=== PATIENT | male | born 2000 | race Caucasian/White ===

== ENCOUNTER 2023-12-04 14:24 | Outpatient (AMB) | payer OTHER, SELFPAY ==
--- NOTE | 2023-12-04 14:35 | MHC.OFFVIS ---
Vital Signs 12/04/23 14:41 Height 6 ft Weight 262 lb 12.656 oz BMI 35.6 BP 100/62 Blood Pressure Location Lt brachial Position Sitting Pulse 70 Pulse Source Pulse Oximeter Intake Visit Reasons: hypo Intake Note: New patient present today for congenital hypothyroid. Cardiac Technologist Required: No Accompanied by: Self / Same As Patient Allergies No Known Allergies Allergy (Verified 12/04/23 14:43) Medication List - Last Reconciled 12/04/23 by Gagan Quiros MD levothyroxine 137 mcg PO DAILY HPI Comments Details: 23 YO M with PMHx [] who is seen in consultation at the request of his PCP for Hyothyroidism. Was seeing Dr. Mrucia First diagnosed with Hypothyroidism entire life Currently using generic levothyroxine 274 ug for 2 yrs . Tried Synthroid and [place] Denies +fatigue, -weight gain, -cold intolerance, -dry skin,- hair loss, -constipation. There is no hx of hyperlipidemia . Denies obstructive sx of goiter . Denies consuming any kelp or seaweed. Denies taking amiodarone. Biotin: No Family history of thyroid disease: No Labs: C/O loss of libido . Some problem with errectile maintainence [facility] Medical History (Updated 12/04/23 @ 14:39 by Gagan Quiros MD) Hypothyroidism Family History Mother No problems noted. Father No problems noted. Social History Alcohol intake: current Patient Tobacco Use Status: Never used Tobacco Physical Exam HEENT reveals absence of lid lag , stare or proptosis or eyebrow loss. Thyroid gland measure 15 gms . No nodules or tenderness palpated. There is no cervical adenopathy palpated. Lungs CTA. Heart S1, S2 Reg R/R -M/R/G. Abdominal exam benign. Skin exam reveals absence of dryness or thyroid dermopathy or vitiligo. Nail exam reveals absence of thyroid acropachy or oncholysis. Neurologic exam reveals 2+ reflexes . Muscle Strength is 5/5 proximally. There are no tremors in upper extremities. Assessment & Plan Assessment & Plan (1) Hypothyroidism: Code(s): E03.9 - Hypothyroidism, unspecified Category: Medical Plan: This is a 23-year-old white male with a history of hypothyroidism being treated with 274 mcg of generic levothyroxine. He appears to be clinically euthyroid. Lab tests show a testosterone level in the 300s and a. cortisol of 5 both perform mid afternoon. He is complaining of fatigue but recently had a TSH checked that was normal with elevated free T4 Plan is to change to generic levothyroxine to branded Tirosint and recheck TSH and free T4 along with anti-peroxidase antibodies in 6 weeks. Will also recheck a.m. cortisol as well as testosterone fasting in 4 weeks. Will obtain previous office visit notes from Dr. Murcia at [facility] endocrine. Orders: Orders Free T4 (Free Thyroxine) 4 Weeks E03.9 - Hypothyroidism, unspecified Thyroid Stimulating Hormone 4 Weeks E03.9 - Hypothyroidism, unspecified Thyroid Peroxidase Antibodies 4 Weeks E03.9 - Hypothyroidism, unspecified Cortisol Random 4 Weeks E03.9 - Hypothyroidism, unspecified Testosterone, Free/Total 4 Weeks E03.9 - Hypothyroidism, unspecified Medications: New Tirosint (levothyroxine) 274 mcg (2 x 137 mcg) PO DAILY 60 caps 5RF NS Coding Level of Care Code New Pt Level 4 (84894) Diagnoses Hypothyroidism E03.
[2023-12-04 14:41] VITALS: BP 100/62; PULSE 70; BMI 35.6
== END 2023-12-04 15:24 | disposition home or self-care (01) ==
PROVIDERS: PCP Family Medicine; Visit Provider Internal Medicine Endocrinology, Diabetes & Metabolism
DX: E03.9 Hypothyroidism, unspecified (principal)
CPT/HCPCS: 99204

== ENCOUNTER → 2023-12-04 14:24 | Outpatient (BNVA) | payer OTHER, SELFPAY | PROVIDERS: PCP Family Medicine; Visit Provider Internal Medicine Endocrinology, Diabetes & Metabolism ==

== ENCOUNTER 2024-01-01 07:40 | Outpatient (REF) | payer OTHER, SELFPAY ==
[2024-01-01 09:20] LABS: Cortisol Random 8.2 ug/dL; Free T4 (Free Thyroxine) 1.51 ng/dL (0.71-1.85); Thyroid Stimulating Hormone 0.68 uIU/mL (0.32-4.0)
[2024-01-02 11:07] LABS: Thyroid Peroxidase Antibodies 3 IU/mL (<9)
[2024-01-05 20:54] LABS: Testosterone, Free 92.7 pg/mL (35.0-155.0); Testosterone, Total 648 ng/dL (250-1100)
== END 2024-01-01 07:41 | disposition home or self-care (01) ==
LOC: HO.LAB 07:40
PROVIDERS: PCP Family Medicine; Visit Provider Internal Medicine Endocrinology, Diabetes & Metabolism
DX: E03.9 Hypothyroidism, unspecified (principal)
CPT/HCPCS: 36415; 82533; 84402; 84403; 84439; 84443; 86376

== ENCOUNTER 2024-01-05 08:06 | Outpatient (RCR) | payer OTHER, SELFPAY ==
[2024-01-05 08:12] VITALS: BP 131/90; PULSE 83; RESP 20; TEMP 37.2; O2SAT 98
[2024-01-05] MEDS: Cosyntropin 0.25 MG VIAL IVPUSH (08:30)
[2024-01-05 08:40] VITALS: BP 136/84; PULSE 83
--- NOTE | 2024-01-05 09:25 | HO.INF ---
PHLEBOTOMY CALLED FOR 60MIN DRAW
--- NOTE | 2024-01-05 09:34 | HO.INF ---
phleb at bedside
[2024-01-06 10:03] LABS: Cortisol 60 Minute 30.2 mcg/dL; Cortisol Baseline 14.9 mcg/dL; Cortisol Baseline Time 1 BASELINE
== END 2024-01-05 13:02 | disposition home or self-care (01) ==
LOC: HO.INF 08:06
PROVIDERS: Visit Provider Internal Medicine Endocrinology, Diabetes & Metabolism
DX: R79.89 Other specified abnormal findings of blood chemistry (principal)
CPT/HCPCS: 36415; 82533; 96374; J0834

== ENCOUNTER 2024-02-01 14:27 | Outpatient (AMB) | payer OTHER, SELFPAY ==
[2024-02-01 14:29] VITALS: BP 124/64; PULSE 98; BMI 36.8
--- NOTE | 2024-02-01 14:29 | MHC.OFFVIS ---
Vital Signs 02/01/24 14:29 Height 6 ft Weight 271 lb 9.752 oz BMI 36.8 BP 124/64 Blood Pressure Location Lt brachial Position Sitting Pulse 98 Pulse Source Pulse Oximeter Intake Visit Reasons: hypothyroidism/LVM Intake Note: Patient present today for hypothyroidism follow up visit. 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 Was seeing Dr. Murcia First diagnosed with Hypothyroidism entire life Currently using generic levothyroxine 274 ug for 2 yrs . Tried Synthroid and [place] Denies +fatigue, -weight gain, -cold intolerance, -dry skin,- hair loss, -constipation. There is no hx of hyperlipidemia . Denies obstructive sx of goiter . Denies consuming any kelp or seaweed. Denies taking amiodarone. Biotin: No Family history of thyroid disease: No Labs: C/O loss of libido . Some problem with errectile maintainence [facility] Medical History (Updated 12/04/23 @ 14:39 by Gagan Quiros MD) Hypothyroidism Family History Mother No problems noted. Father No problems noted. Social History Alcohol intake: current Patient Tobacco Use Status: Never used Tobacco Physical Exam Vital Signs: Last Vital Signs Pulse 98 02/01/24 14:29 BP 124/64 02/01/24 14:29 BMI result Body Mass Index 36.8 HEENT reveals absence of lid lag , stare or proptosis or eyebrow loss. Thyroid gland measure 15 gms . No nodules or tenderness palpated. There is no cervical adenopathy palpated. Lungs CTA. Heart S1, S2 Reg R/R -M/R/G. Abdominal exam benign. Skin exam reveals absence of dryness or thyroid dermopathy or vitiligo. Nail exam reveals absence of thyroid acropachy or oncholysis. Neurologic exam reveals 2+ reflexes . Muscle Strength is 5/5 proximally. There are no tremors in upper extremities. Assessment & Plan Assessment & Plan (1) Hypothyroidism: Code(s): E03.9 - Hypothyroidism, unspecified Category: Medical Plan: This is a 23-year-old white male with a history of hypothyroidism being treated with 274 mcg of gTirosint He appears to be clinically and biochemically euthyroid. He had normal testosterone and normal Cortrosyn stim test Plan is to continue the current management. At this point, patient returned to the care of his primary care provider returned back to endocrinology as needed Coding Level of Care Code Est Pt Level 3 (92796) Diagnoses Hypothyroidism E03.9
== END 2024-02-01 15:08 | disposition home or self-care (01) ==
PROVIDERS: PCP Family Medicine; Visit Provider Internal Medicine Endocrinology, Diabetes & Metabolism
DX: E03.9 Hypothyroidism, unspecified (principal)
CPT/HCPCS: 99213

== ENCOUNTER → 2024-02-01 14:27 | Outpatient (BNVA) | payer OTHER, SELFPAY | PROVIDERS: PCP Family Medicine; Visit Provider Internal Medicine Endocrinology, Diabetes & Metabolism ==

== ENCOUNTER 2024-07-02 10:18 | Outpatient (AMB) | payer OTHER, SELFPAY ==
[2024-07-02 10:20] VITALS: BP 122/80; PULSE 64; O2SAT 98; BMI 35.9
--- NOTE | 2024-07-02 10:20 | A.OFFVIS_ITS ---
Vital Signs 07/02/24 10:20 Height 6 ft Weight 264 lb 8.875 oz BMI 35.9 BP 122/80 Blood Pressure Location Rt brachial Position Sitting Pulse 64 Pulse Source Pulse Oximeter Pulse Oximetry (%) 98 Oxygen Delivery Method Room Air Intake Visit Reasons: Hypothyroidism Intake Note: Patient present today for hypothyroidism follow up visit. Temperature Regulator Required: No Accompanied by: Self / Same As Patient Allergies No Known Allergies Allergy (Verified 07/02/24 10:21) Medication List - Last Reconciled 07/02/24 by Juliane Guevara MD Tirosint (levothyroxine) 274 mcg (2 x 137 mcg) PO DAILY NS HPI Comments Details: 23 YO M with PMHx who is seen in for follow up for Hyothyroidism. First diagnosed with Hypothyroidism: at . Born with congential hypothyroi dism. Currently using Tirosint 274 ug . Apparently levothyroxine was tried and was not working for him, concern for absorption issues. Had inadequate response and ongoing fatigue with generic and also Tried Synthroid and [place] . Denies -fatigue, -weight gain, -cold intolerance, -dry skin,- hair loss, - constipation. . Denies obstructive sx of goiter . Denies consuming any kelp or seaweed. Denies taking amiodarone. Biotin: No Family history of thyroid disease: No No smoking Works at [employer] Physical exam General: sitting comfortably in no acute distress HEENT: normocephalic/atraumatic Neck: supple, symmetrical Cardiac: normal heart sounds Pulm: normal breath sounds B/L, no added breath sounds Abd: not distended, no tenderness Extremities: no edema, no signs of myxedema Labs: Laboratory Tests 01/01/24 07:53 TSH 0.68 Free T4 1.51 [facility] Medical History (Updated 07/02/24 @ 10:49 by Julinae Guevara MD) Hypothyroidism Surgical History (Updated 07/02/24 @ 10:23 by ALLA Mcghee) History of testicular surgery Family History Mother No problems noted. Father No problems noted. Social History Alcohol intake: current Patient Tobacco Use Status: Never used Tobacco Physical Exam Vital Signs: Last Vital Signs Pulse 64 07/02/24 10:20 BP 122/80 07/02/24 10:20 Pulse Ox 98 07/02/24 10:20 Oxygen Delivery Method Room Air 07/02/24 10:20 BMI result Body Mass Index 35.9 Assessment & Plan Assessment & Plan (1) Hypothyroidism: Code(s): E03.9 - Hypothyroidism, unspecified Category: Medical Qualifiers: Hypothyroidism type: congenital without goiter Qualified Code(s): E03.1 - Congenital hypothyroidism without goiter Plan: 23-year-old male with congenital hypothyroidism currently on Tirosint 274 mcg daily, apparently was switched to Tirosint because he was having ongoing fatigue and inadequate response to generic levothyroxine, with much improvement in symptoms on Tirosint. Labs last from December 2023 showed normal thyroid function. We will repeat labs now. He is clinically euthyroid. Plan: -ordered TSH, free T4 to be done now -continue Tirosint 274 mcg daily -follow up in 1 year Plan See above Orders: Orders Free T4 (Free Thyroxine) Today E03.9 - Hypothyroidism, unspecified Thyroid Stimulating Hormone Today E03.9 - Hypothyroidism, unspecified Patient Instructions: Continue Tirosint as it is Do blood work today We will message you with results on the portal Coding Level of Care Code Est Pt Level 3 (37111) Diagnoses Congenital hypothyroidism without goiter E03.1 Hypothyroidism type: congenital without goiter
--- OUTSIDE RECORDS SUMMARY | 2024-07-02 11:54 | XMS_ITS | Encounter Summary ---
Author Organization [facility] Address [address] [place] [id number] Phone Care Team Providers Care Parimutuel Cashier Name Role Phone Igor Holland MD Primary Care Provider [phone] Encounter Details Date Type Department Care Team (Late st Contact Info) Description 11/03/2010 Conversion Encounter [address] [place] [address] Social History Tobacco Use Types Packs/Day Years Used Date Smoking Tobacco: Never Assessed Sex and Gender Information Value Date Recorded Sex Assigned at Not on file Legal Sex Male 6:23 PM EDT Gender Identity Not on file Sexual Orientation Not on file documented as of this encounter Plan of Treatment Not on file documented as of this encounter Visit Diagnoses Not on filedocumented in this encounter Care Teams Parimutuel Cashier Relationship Specialty Start Date End Date Igor Holland MD [address] [place] [address] [place] [id number] PCP - General 08/23/17 documented as of this encounter
--- OUTSIDE RECORDS SUMMARY | 2024-07-02 11:54 | XMS_ITS | Data Portability ---
Author Organization [facility] Address [address] [place] [address] Assessment Encounter Date Assessment Date Assessment LastModified by Organization Details LastModified Time 05/30/2018 05/30/2018 Xrays of foot show a possible fracture of his lateral cuneiform. 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 Patient was put in a boot for stability and pain relief. Patient states that he does not have a team physician so he will follow up with Dr. Perez after CT. [email or web address] Not available 05/30/2018 19:47:03 06/29/2018 06/29/2018 She returns to clinic today for recheck of his right ankle. 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 Seems to be coming along quite nicely. We will continue therapeutic exercise with the maintenance trainer for another month or so. He understands the high risk of recurrent injury. The rigid brace and taping also need to be in place for at least 6 months with athletic activity. I am glad to see him back on a when necessary basis. [email or web address] Not available 06/29/2018 17:23:26 Plan of Treatment Reminders Order Date Submit Date Provider Last Modified By Organization Details Last Modified Time Details Appointments None recorded. Lab None recorded. Referral None recorded. Procedures None recorded. Surgeries None recorded. Imaging CT, foot, w/o contrast - include ankle joint, R/O fracture cuneiform bone and injury of posterior tibialis tendon 2018 019 [email or web address] [facility] (Imaging), [address], [place], [address], 9 13:58:48 XR, foot 2018 019 [email or web address] In-House Results, For Internal Use Only, Do Not Delete/merge, [id number] 9 12:11:27 Medication Orders None recorded. Patient TargetsNo targets recorded. Patient Instructions Encounter Date Encounter Id Patient Instructions Last Modified By Organization Details Last Modified Time 05/30/2018 [id number] note to return t o work/school [facility] Not available 05/31/2018 12:11:27 06/06/2018 [id number] note to return t o work/school [facility] Not available 06/06/2018 19:58:09 Reason for Referral None Reported. Results Created Date Observation Date Name Description Value Unit Range Abnormal Flag Note LastModifiedBy Organization Detail LastModifiedTime Result Notes None recorded. Problems Name Problem SNOMED Code Status Onset Date Resolution Date Notes Provider Name and Address Organization Details Recorded Time Foot pain 19191024 Active 019 Jyothi pagan [facility] 05/30/2018 19:10:36 Ankle pain 123393107 Active 019 Jyothi pagan [facility] 05/30/2018 19:10:45 Problem Notes None recorded. Procedures Surgical History Date Name Laterality Status Provider Name and Address Organization Details Recorded Time 2 Testicular imaging w/flow completed Jyothi Temple [facility] 05/30/2018 18:21:58 Imaging Results None recorded. Procedure Notes None recorded. Medical Equipment None Reported. Allergies No known drug allergies Medications Name Sig Start Date Stop Date Status Note LastModified by Organization Details LastModified Time paroxetine 10 mg tablet active Not Available Not Available No t Available ibuprofen 800 mg tablet active Not Available Not Available No t Available amoxicillin 875 mg tablet 06/29 completed Not Available Not Available Not Available mupirocin 2 % topical ointment active Not Available Not Available Not Available Synthroid 112 mcg tablet Take 1 tablet every day by oral route. active Not Available Not Available No t Available neomycin-poly myxin-hydroco rt 3.5 mg-10,000 unit/mL-1 % ear drops,susp active Not Available Not Available N ot Available cyclobenzapri ne 5 mg tablet active Not Available Not Available Not Available Paxil 5mg active Not Available Not Availa ble Not Available Vitals Date Recorded Body height Body mass index (BMI) Body mass index (BMI) Percentile per age and sex Body weight Heart rate Systolic blood pressure Diastolic blood pressure Provider Name and Address Organization Details Last Updated DateTime 9 185.42 cm 33 kg/m2 98 % 679811. 09 g 78 /min 124 mm[Hg] 80 mm[Hg] Jyothi Temple [facility] 9 18:19:14 Date Recorded Body height Provider Name an d Address Organization Details Last Updated DateTime 06/06/2018 185.42 cm Anushka Tanner [facility] 06/06/2018 15:33:26 Date Recorded Body height Provider Name an d Address Organization Details Last Updated DateTime 06/29/2018 185.42 cm ALEKSANDR KUMAR [facility] 06/29/2018 08:48:34 Social History Question Answer Notes LastModified by [employer] ion Details LastModified Time Tobacco Smoking Status Never Smoker [facility] 05/30/2018 18:20:53 Do You Have An Advance Directive? No [email or web address] Information not available 06/29/2018 What Is Your Level Of Alcohol Consumption? None [email or web address] Information not available 06/29/2018 Auto Related Injury? No Information not available 06/29/2018 What Is Your Level Of Caffeine Consumption? Occasional [email or web address] Information not available 06/29/2018 How Much Tobacco Do You Chew? None [email or web address] Information not available 06/29/2018 Which Of Your Hands Is Dominant? Right [email or web address] Information not available 06/29/2018 Live Alone Or With Others? Alone [email or web address] Information not available 06/29/2018 Ambulatory Status Ambulates W/o Assistance Information not available 06/29/2018 Illicit Drugs No [email or web address] Information not available 06/29/2018 Marital Status Single Informatio n not available 06/29/2018 What Was The Date Of Your Most Recent Tobacco Screening? 06/29/2018 Information not available 11/08/2018 How Much Tobacco Do You Smoke? No [email or web address] Information not available 06/29/2018 Work Related Injury? No [email or web address] Information not available 06/29/2018 Sex: Unknown Functional Status Question Answer Note LastModified by Organization D etails LastModified Time What is your exercise level? Heavy [email or web address] Information not available 06/29/2018 Mental Status None recorded. Family History Nothing Reported. Medical History Condition Response Pancreatitis N HIV or AIDS N Coronary Artery Disease N Gout N High Blood Pressure N Diarrhea N Kidney Stones N Irregular Heartbeat N Hernia N Head Trauma/Injury N Emphysema N Lung Disease N Glaucoma N Depression N COPD N Blood Clots N Thyroid Y Pacemaker N Sleep Apea N Repeated Fevers N Anxiety Disorder Y Muscle, Joint, or Bone Problems N Arthritis N Serious Illness or Injuries N Congenital Anomalies N Cancer N Stroke N Neck Injury N Leg or Foot Ulcers N Bladder or Kidney Problems N Shortness of Breath N Rashes N High Cholesterol N Neurologic Disorder N Liver Disease N Organ Transplant N Rheumatoid Arthritis N Fibromyalgia N Hives or other skin conditions N Kidney Disease N Prostate N Heart Problems N Weight Loss N Osteoarthritis N Coagulation Disorder N Balance Problems N Arrhythimia N Stroke TIA N Gallstones N Carpel Tunnel N Anemia N Ulcers N Heart Attack (NE) N Diabetes N Mental Health N Bleeding Disorder N Seizures/Epilepsy N Urinary burning, pain or frequency N Skin problems N Headaches or Migraines N Eczema N Diverticulitis N Asthma N Allergies N Sinus Problems N Peripheral Vascular Disease N Blackouts N Numbness/Tingling N Easy Bruising N GERD/Reflux N Hepatitis N Neuropathy N Heart Disease N Pulmonary Embolism N Hypertension N Osteoporosis N Past Encounters Encounter ID Performer Location Encounter Start Date Encounter Closed Date Diagnosis/Indication Diagnosis SNOMED-CT Code Diagnosis ICD10 Code Diagnosis Note [id number] [facility] [address] [place] [address] 05/30/2018 17:56:02 05/30/2018 19:11:35 Foot pain 07040912 M79.671 Ankle pain 092938592 M25 .055 [id number] [place] Perez MD [facility] [address] [place] [address] 06/06/2018 15:28:59 06/06/2018 15:57:16 Sprain of ankle 41290781 S93.421D Patient comes to clinic today for evaluation of his right ankle as a referral from the walk-in clinic. He has grade 2 sprain with some involvemen t of the deltoid ligament. Suggest continuati on of the boot with trial of play in 2 weeks. I will see him back at that time for evaluation . He has a rigid brace he may use it I believe this is the velocity brace based on his descriptio n. Anti-infla mmatories rest ice and physical therapy modalities with his maintenance trainer.CT scan reviewed showing no acute fracture. Minor avulsions from previous injuries likely. [id number] [place] Perez MD [facility] [address] [place] [address] 06/29/2018 08:44:31 06/29/2018 09:17:27 Sprain of ankle 50003296 S93.421D Health Concerns Section Related Observation LastModified by Organization Detai ls LastModified Time None Recorded Concern Status LastModified by Organization Details LastModified Time None Recorded Advance Directives Directive N: Payers Encounter Date Sequence Insurance Name Policy Number Policy Valdez Covered Member ID Valdez Member ID Guarantor Name 05/30/2018 1 [place] [id number] Humza Granados [place] [id number] Dylan D Kaleb 06/06/2018 1 [place]) [id number] Humza Roberta [place] [id number] Dylan D [place] 06/29/2018 1 [place] [id number] Humza Roberta [place] [id number] Dylan D [place] Notes Date Note Type Note Provider Name and Address Organization Details Recorded Time 05/30/2018 text/html 17 y/o male come s to the clinic tonight concerning his right ankle. He states that he was playing volleyball and went up to strike volleyball when another players foot got under his and he came down on the other players foot turning his ankle. 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 He states that he has talked to his maintenance trainer. Patient states that he was put on crutches for 3 days until he was able to ambulate, but was still having pain and swelling so he went to get xrays at urgent care last night. He states that he has been playing with a sprained ankle for four games with an ankle brace on. Patient states that he has tried ice and ibuprofen that has helped with the pain some but he still has pain with walking and still has swelling. Patient states that he does have pain in his midfoot with pressure applied/walking. He that he does have a little numbness right around his distal metatarsals, but the numbness has gotten better. [facility] [facility],[address], [place], [address], [facility] 05/30/2018 19:50:08 06/06/2018 text/html This patient com es to clinic today for recheck of his right foot. He was seen at the walk-in clinic for a twisting injury suffered. 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 He states using the walking boot the pain is a little bit better. It is at the medial and lateral aspect of the ankle. He suffered multiple sprains in the past nothing quite this series. He has ordered a rigid splint which seems to help when he tries to play but currently the pain is too unbearable. Rates is moderate with associated swelling. There is no numbness tingling or mechanical complaints. Anti-inflammatories seem to help. [place] Perez MD [address] [facility],[address], [place], [address], [facility] 06/06/2018 20:35:26 06/29/2018 text/html Patient states t hat he has been able to weight-bear without the walking boot with no significant discomfort and has done some white athletic training. He has been taping the ankle and wearing a semirigid brace. He notes no other mechanical complaints and states the swelling is improving. He is also working with his maintenance trainer for modalities and proprioception training. Washington Perez MD [address] [facility],[address], [place], [address], [facility] 06/29/2018 17:23:32
--- OUTSIDE RECORDS SUMMARY | 2024-07-02 11:54 | XMS_ITS | Clinical Summary ---
Author Organization [facility] Address [address] [place] [id number] Phone Care Team Providers Care Adobe Flex Developer Name Role Phone Igor Holland MD Primary Care Provider [phone] Allergies No known active allergies Medications amoxicillin 875 MG tablet TK 1 T PO BID X 10 DAYS 0 8 Active levothyroxine 125 MCG tabletIndications:C ongenital hypothyroidism Take 2 tablets (250 mcg total) by mouth daily. 60 tablet 3 Active Active Problems Problem Noted Date Diagnosed Date Ankle pain 05/30/2018 Pure hypercholesterolemia 11/11/2014 Overview (11/08/2017): Hypercholesterolemia (272.0) Onset: 11/11/2014 Added by: Brennen Juarez Assessment & Plan (11/08/2017 1:00 PM EDT): Noted to have elevation of non-HDL cholesterol. Discussed dietary recommendations. Overweight 11/04/2014 Overview (11/08/2017): Overweight (278.02) Onset: 11/04/2014 Added by: Brennen Juarez Assessment & Plan (11/08/2017 1:01 PM EDT): BMI over 25 and more so over 30 places patient at increased risk for development of diabetes, cardiovascular disease and kidney disease. Discussed these things in this visit. Discussed importance of being active. Previously screened for cholesterol, diabetes and elevated liver transaminases. Generalized anxiety disorder 10/08/2013 Overview (11/08/2017): Anxiety, generalized (300.02) Onset: 10/08/2013 Added by: Brennen Juarez Assessment & Plan (11/08/2017 12:36 PM EDT): Doing well with paxil for anxiety. This has been working well for him. 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 Normal thyroid labs, continue on current synthroid dose (250mcg daily). 12/24/2018 - Mitch Byrd MD, [facility]. Follow up in 1 yr for hypothyroidism. Assessment & Plan (11/08/2017 12:59 PM EDT): Followed by [facility] Immunizations Immunization Administration Dates Next Due DTaP 5 12/10/2002, 1,02/22/1999,12/16 Hep B, ped/adol 07/12/2002,02/22/1999,1998 IPV 12/10/2002, 1,02/22/1999,12/16 Influenza, injectable, trivalent 01/05/2010 Influenza, injectable, triva lent, preservative free 02/23/2013,02/23/2012,01/15/2011 MMR 12/10/2002,12/22/1999 Meningococcal Conj (Menactra) MCV4P 11/07/2016,0 07/05/2010 Tdap 12/07/2020,07/05/2010 Varicella 07/05/2010,12/22/1999 Family History Relation Name Status Comments Father luisa Alive Mother audelia Alive Social History Tobacco Use Types Packs/Day Years Used Date Smoking Tobacco: Never Smokeless Tobacco: Never Comments:Never Smoker Alcohol Use Standard Drinks/Week Comments No 0 (1 standard drink = 0.6 oz pur e alcohol) Hunger/Food Answer Date Recorded In the last 12 months, did y ou or your family ever eat less than you felt you should because there wasn't enough money for food? No 04/05/2022 Stable Housing Answer Date Recorded Are you worried that in the next 2 months you may not have stable housing? No 04/05/2022 Transportation Concerns Answer Date Rec orded In the last 12 months, have you or your family ever had to go without healthcare because you didn't have a way to get there? No 04/05/2022 Hazards in Home Answer Date Recorded Think about the place you li ve. Do you have problems with any of the following? Pests (mice or roaches), mold, no/not working smoke detectors, water leaks, no window guards. No 2021 Financing Utilities Answer Date Recorde d In the last 12 months, has t he electric, gas, oil, or water company threatened to shut off your services in your home? No 04/05/2022 Safety at Home Answer Date Recorded Are you or your family worried about feeling saf e in your home? No 04/05/2022 Outside Support Answer Date Recorded Do you feel that you need mo re support from other people or programs to help you care for yourself or your family? No 04/05/2022 Understanding Health Concerns Answer Da te Recorded Do you need help understandi ng your or your child's healthcare needs (diagnosis, medications, plan, etc.)? No 04/05/2022 Financing Health Concerns Answer Date R ecorded In the last 12 months, was t here a time when your child needed to see a doctor or get medications or supplies but could not because of cost? No 04/05/2022 Missing School or Work Answer Date Mario rded Did you or your child miss s chool or work because of a health problem that could have been avoided? No 04/05/2022 Sex and Gender Information Value Date Recorded Sex Assigned at Not on file Legal Sex Male 6:23 PM EDT Gender Identity Not on file Sexual Orientation Not on file Last Filed Vital Signs Vital Sign Reading Time Taken Comments Blood Pressure 128/60 04/07/2022 1:42 PM EST Pulse 69 04/07/2022 1:42 PM EST Temperature 36.4 ??C (97.6 ??F) 04/07/2022 1:42 PM ES T Respiratory Rate - - Oxygen Saturation - - Inhaled Oxygen Concentration - - Weight 108 kg (237 lb) 04/07/2022 1:42 PM EST Height 180.3 cm (5' 11 ) 04/07/2022 1:42 PM EST Body Mass Index 33.05 04/07/2022 1:42 PM EST Plan of Treatment Health Maintenance Due Date Last Done Comments HPV Vaccines (1 - Male 3-dose series) 2013 Influenza Vaccines (#1) 2023 01/06/20, 02/23/2013, 02/23/2012, Additional history exists COVID-19 Vaccine ( - season) 2023 12/16/2020, 11/27/2020 DTaP,Tdap,and Td Vaccines (7 - Td or Tdap) 12/07/2030 12/07/2020, 07/05/2010, 12/10/2002, Additional history exists Hepatitis B Vaccines Completed 07/12/2002, 02/22/1999, 1998 IPV Vaccines Completed 12/10/2002, 11/2000, 02/22/1999, Additional history exists MMR Vaccines Completed 12/10/2002, 12/22/1999 Varicella Vaccines Completed 07/05/2010, 12/22/1999 Meningococcal Vaccine Completed 11/07/2016, 011 HIB Vaccines Aged Out No longer eligi ble based on patient's age to complete this topic Hepatitis A Vaccines Aged Out No long er eligible based on patient's age to complete this topic Men B Vaccine Aged Out No longer elig ible based on patient's age to complete this topic Pneumococcal Vaccine Aged Out No long er eligible based on patient's age to complete this topic Insurance [facility] [employer] [place] [id number] Care Teams Adobe Flex Developer Relationship Specialty Start Date End Date Igor Holland MD [facility] [place] [id number] PCP - General 08/23/17
--- OUTSIDE RECORDS SUMMARY | 2024-07-02 11:54 | XMS_ITS | Encounter Summary ---
Author Organization [facility] Address [address] [place] [phone] Phone Care Team Providers Care Steward/Stewardess Deck Name Role Phone Igor Holland MD Primary Care Provider [phone] Reason for Visit * Reason Onset Date Comments Med Refill 04/08/2022 Encounter Details Date Type Department Care Team (Late st Contact Info) Description 04/08/2022 Refill [facility] [address] [place] [address] [place] [phone] Igor Holland MD [address] [place] [address] [place] [phone] Social History Tobacco Use Types Packs/Day Years [...] on file documented as of this encounter Miscellaneous Notes * Telephone Encounter - Brennen Juarez MD - 04/12/2022 11:51 AM EST Script for [id number] levothyroxine tablets daily, sent to pharmacy. He will need to transition to an adult provider if he has not already done so. documented in this encounter Plan of Treatment Not on file documented as of this encounter Visit Diagnoses Not on filedocumented in this encounter Care Teams Steward/Stewardess Deck Relationship Specialty Start Date End Date Igor Holland MD [facility] [facility] [place] [id number] PCP - General 08/23/17 documented as of this encounter
== END 2024-07-02 10:52 | disposition home or self-care (01) ==
LOC: HO.ENCR 10:19
PROVIDERS: PCP Family Medicine; Visit Provider Student in an Organized Health Care Education/Training Program
DX: E03.1 Congenital hypothyroidism without goiter (principal)
CPT/HCPCS: 99213

== ENCOUNTER 2024-07-02 10:54 | Outpatient (REF) | payer OTHER, SELFPAY ==
[2024-07-02 13:57] LABS: Free T4 (Free Thyroxine) 1.67 ng/dL (0.71-1.85); Thyroid Stimulating Hormone 0.34 uIU/mL (0.32-4.0)
== END 2024-07-02 10:55 | disposition home or self-care (01) ==
LOC: HO.10HDL 10:54
PROVIDERS: Visit Provider Student in an Organized Health Care Education/Training Program
DX: E03.9 Hypothyroidism, unspecified (principal)
CPT/HCPCS: 36415; 84439; 84443